=== PATIENT | female | born 1960 | race Caucasian/White ===

== ENCOUNTER 2017-03-22 16:33 | Emergency (ER) | payer OTHER ==
[2017-03-22] MEDS ORDERED: 0.9 % SODIUM CHLORIDE 1,000 ML IV ONE (17:11)
[2017-03-22] MEDS ORDERED: FOLIC ACID 5 MG/1 ML ONE (17:11)
[2017-03-22] MEDS ORDERED: THIAMINE HCL 100 MG/ML 2ML VIAL ONE (17:11)
[2017-03-22] MEDS ORDERED: MVI, ADULT NO.1 WITH VIT K 10 ML VIAL IV ONE (17:11)
[2017-03-22 17:25] LABS: BASOPHILS % 0.8 (0.0-1.5); EOSINOPHILS % 2.6 % (0.0-6.8); MEAN CORPUSCULAR VOLUME 95.7 fl (80.0-100.0); MONOCYTES % 7.7 % (0.0-11.0); NEUTROPHILS # 2.5 # k/uL (1.4-7.7)
[2017-03-22 17:36] LABS: eGFR (African) > 60; eGFR (Non-African) > 60
[2017-03-22] MEDS: THIAMINE HCL 100 MG, MVI, ADULT NO.1 WITH VIT K 10 ML, FOLIC ACID 5 MG in 0.9 % SODIUM ... IV ONE ×4 (17:43)
[2017-03-22 17:49] LABS: APPEARANCE,URINE Clear (CLEAR); COLOR,URINE Yellow (YELLOW); OCCULT BLOOD,URINE Negative (NEGATIVE)
[2017-03-22 17:55] LABS: AMORPHOUS SEDIMENT,UR FEW (NEGATIVE)
[2017-03-22] MEDS: POTASSIUM CHLORIDE 20 MEQ TABLET.ER PO ONE (18:10)
[2017-03-22] MEDS: KETOROLAC TROMETHAMINE 30 MG/1ML VIAL IVP ONE (18:10)
[2017-03-22] MEDS: ONDANSETRON HCL/PF 4 MG/ 2ML VIAL IVP ONE (18:10)
[2017-03-22] MEDS: SULFAMETHOXAZOLE/TRIMETHOPRIM 1 EACH TABLET PO ONE (18:10)
[2017-03-22] MEDS ORDERED: ONDANSETRON HCL/PF 4 MG/ 2ML VIAL ONE (18:21)
[2017-03-22 20:31] VITALS: BP 95/62
--- NOTE | 2017-03-22 20:42 | ED Physician Documentation ---
General Adult - HISTORIAN Historian: patient - HPI Stated Complaint: ETOH intoxication Chief Complaint: General Adult Additional Information: pt. is chronic alcoholic, entering [facility] and had ambulation instability, sent over for eval. Onset: hours (1 hour) Timing: still present Severity: moderate Modifying Factors: chronic alcoholic Further Comments: no - ROS CONST: other (gait disturbance) EYES/ENT: none CVS/RESP: none GI/: none MS/SKIN/LYMPH: none NEURO/PSYCH: difficulty walking - PAST HX Past History: other (chronic alcoholism) Other History: other (hypertension, gerd, anxiety, depression) Surgeries/Procedures: other (hip) Immunizations: referred to PCP Allergies/Adverse Reactions: Allergies Allergy/AdvReac Type Severity Reaction Status Date / Time Latex, Natural Rubber Allergy Verified 03/22/17 17:20 Home Medications: Ambulatory Orders Medication Instructions Recorded Cyclobenzaprine HCl [Flexeril] 5 mg PO TID PRN 03/22/17 Omeprazole [Prilosec] 40 mg PO DAILY 03/22/17 Trazodone HCl 50 mg PO BID 03/22/17 amLODIPine BESYLATE [Norvasc] 5 mg PO 0900 03/22/17 fentaNYL 25 MCG [Duragesic] 25 mcg TOP Q72 03/22/17 risperiDONE [Risperdal] 0.5 mg PO DAILY 03/22/17 - SOCIAL HX Smoking History: non-smoker Alcohol Use: heavy Drug Use: none - FAMILY HX Family History: No - VITAL SIGNS Vital Signs: Vital Signs Temp Pulse Resp BP Pulse Ox 97.9 F 89 14 139/78 91 L 03/22/17 16:45 03/22/17 16:45 03/22/17 16:45 03/22/17 16:45 03/22/17 16:45 - REVIEWED ASSESSMENTS Nursing Assessment Reviewed: Yes Vitals Reviewed: Yes Progress - Results/Orders Results/Orders: cbc, cmp, ua, amylase, ETOH, ct head and ct abdomen/pelvis ordered - Progress Progress: Pt. given a banana bag iv, 30 mg toradol, 1 bactrim ds p.o., 4 mf zofran ivp and 60 mg kcl p.o. in er Critical Care Note - Critical Care Note Total Time (mins): 0 ED Results Lab/Radiology - Lab Results Lab Results: Lab Results 03/22/17 03/22/17 03/22/17 18:16 17:45 17:19 WBC RBC Hgb Hct MCV MCH MCHC RDW Plt Count Neut % (Auto) Lymph % (Auto) [place] % (Auto) Eos % (Auto) Baso % (Auto) Neut # (Auto) Lymph # (Auto) [place] # (Auto) Eos # (Auto) Baso # (Auto) Reactive Lymphs % Reactive Lymphs # Sodium 142 mmol/L mmol/L (136-145) Potassium 2.7 mmol/L L mmol/L (3.5-5.0) Chloride 100 mmol/L mmol/L (98-110) Carbon Dioxide 26 mmol/L mmol/L (20-32) BUN 6 mg/dL L mg/dL (10-26) Creatinine 0.3 mg/dL L mg/dL (0.4-1.5) Estimated Creat Clear 183 Est GFR ( Amer) > 60 (60 - ) Est GFR (Non-Af Amer) > 60 (60 - ) Glucose 106 mg/dL H mg/dL (70-99) Calcium 9.3 mg/dL mg/dL (8.5-10.5) Total Bilirubin 1.3 mg/dL H mg/dL (0.2-1.2) AST 174 U/L H U/L (0-41) ALT 27 U/L U/L (0-45) Alkaline Phosphatase 206 U/L H U/L (46-116) Total Protein 7.1 g/dL g/dL (6.0-8.5) Albumin 4.2 g/dL g/dL (3.0-5.5) Amylase 14 U/L L U/L (20-104) Urine Color Yellow (YELLOW) Urine Appearance Clear (CLEAR) Urine pH 7.0 (5.0 - 8.0) Ur Specific [place] 1.010 (1.010-1.030) Urine Protein Negative mg/dL mg/dL (NEGATIVE) Urine Ketones Negative mg/dL mg/dL (NEGATIVE) Urine Occult Blood Negative (NEGATIVE) Urine Nitrite Negative (NEGATIVE) Urine Bilirubin Negative (NEGATIVE) Urine Urobilinogen 2.0 Eu H Eu (0.2-1.0) Ur Leukocyte Esterase Trace (NEGATIVE) Urine RBC 0-2 (0-2 HPF) Urine WBC 5-10 H (0-5 HPF) Ur Squamous Epith Cells Few (NEG-FEW) Amorphous Sediment Few H (NEGATIVE) Urine Bacteria Many H (NEGATIVE) Urine Glucose Negative mg/dL mg/dL (NEGATIVE) Urine HCG, Qual Negative (NEGATIVE) Ethyl Alcohol 234.0 MG/DL H MG/DL (<10.0) 03/22/17 17:19 WBC 4.80 K/ul K/ul (4.00-12.00) RBC 4.11 M/ul M/ul (3.90-5.20) Hgb 12.3 g/dL g/dL (12.0-16.0) Hct 39.3 % % (34.5-46.5) MCV 95.7 fl fl (80.0-100.0) MCH 30.0 pg pg (28.0-34.0) MCHC 31.4 g/dL g/dL (30.0-36.0) RDW 16.0 % H % (11.3-14.3) Plt Count 94 K/mm3 L K/mm3 (130-400) Neut % (Auto) 51.7 % % (39.0-79.0) Lymph % (Auto) 35.1 % % (16.0-50.0) [place] % (Auto) 7.7 % % (0.0-11.0) Eos % (Auto) 2.6 % % (0.0-6.8) Baso % (Auto) 0.8 (0.0-1.5) Neut # (Auto) 2.5 # k/uL # k/uL (1.4-7.7) Lymph # (Auto) 1.7 # k/uL # k/uL (0.6-4.0) [place] # (Auto) 0.4 # k/uL # k/uL (0.0-0.9) Eos # (Auto) 0.1 # k/uL # k/uL (0.0-0.6) Baso # (Auto) 0.0 # k/uL # k/uL (0.0-0.5) Reactive Lymphs % 2.1 % % (0.0-5.0) Reactive Lymphs # 0.1 # k/uL # k/uL (0.0-0.8) Sodium Potassium Chloride Carbon Dioxide BUN Creatinine Estimated Creat Clear Est GFR ( Amer) Est GFR (Non-Af Amer) Glucose Calcium Total Bilirubin AST ALT Alkaline Phosphatase Total Protein Albumin Amylase Urine Color Urine Appearance Urine pH Ur Specific [place] Urine Protein Urine Ketones Urine Occult Blood Urine Nitrite Urine Bilirubin Urine Urobilinogen Ur Leukocyte Esterase Urine RBC Urine WBC Ur Squamous Epith Cells Amorphous Sediment Urine Bacteria Urine Glucose Urine HCG, Qual Ethyl Alcohol - Radiology Radiology Impressions: ct abdomen/pelvis neg except for constipation, ct head neg - Orders Orders: ED Orders Category Date Time Status Regular Diet 03/22/[address] ABD & PELVIS W/O CON Stat Exams 03/22/[address] BRAIN W/O CONTRAST Stat Exams 03/22/17 Taken AMYLASE Routine Lab 03/22/17 17:19 Completed CBC/PLATELET/DIFF Routine Lab 03/22/17 17:19 Completed CMP Routine Lab 03/22/17 17:19 Completed ETHANOL MEDICAL USE ONLY Routine Lab 03/22/17 17:19 Completed HCG [URINE HCG] Routine Lab 03/22/17 18:16 Completed URINALYSIS Routine Lab 03/22/17 17:45 Completed URINE CULTURE Routine Lab 03/22/17 17:45 Received 0.9 % Sodium Chloride [Normal Saline] 1,000 ml Med 03/22/17 17:11 Discontinued IV .STK-MED Folic Acid [Folvite] Med 03/22/17 17:11 Discontinued 5 mg .ROUTE .STK-MED ONE Ketorolac Tromethamine [Toradol] Med 03/22/17 18:03 Discontinued 30 mg IVP NOW ONE Mvi, Adult No.1 with Vit K [M.v.i. Adult] Med 03/22/17 17:11 Discontinued 10 ml IV .STK-MED ONE Ondansetron HCl/Pf [Zofran 4 mg/2 ml] Med 03/22/17 18:21 Discontinued 4 mg .ROUTE .STK-MED ONE Potassium Chloride [Klor-Con M20] Med 03/22/17 17:58 Discontinued 60 meq PO NOW ONE Sulfamethoxazole/Trimethoprim [Bactrim Ds] Med 03/22/17 17:59 Discontinued 1 each PO NOW ONE Thiamine HCl Med 03/22/17 17:11 Discontinued 200 mg .ROUTE .STK-MED ONE Thiamine HCl 100 mg Med 03/22/17 17:15 Discontinued Mvi, Adult No.1 with Vit K [M.v.i. Adult] 10 ml Folic Acid [Folvite] 5 mg 0.9 % Sodium Chloride [Normal Saline] 1,000 ml IV NOW General Adult Physical Exam - PHYSICAL EXAM GENERAL APPEARANCE: mild distress EENT: ENT inspection normal, pharynx normal, HUYEN, TM's nml, nystagmus NECK: normal inspection, thyroid normal, supple RESPIRATORY: no resp distress, chest non-tender, breath sounds normal CVS: reg rate & rhythm, heart sounds normal, equal pulses, no murmur, no gallop , PMI nml ABDOMEN: soft, tenderness (left lower quadrant and suprapubic area) BACK: normal inspection, no CVA tenderness SKIN: warm/dry, normal color EXTREMITIES: non-tender, normal range of motion, no evidence of injury, other ( staggered ambulation on presentation, much more stable after treatment) NEURO: oriented X3, CN's nml as tested, motor nml, sensation nml, mood/affect nml, cognition normal Discharge Clincal Impression: Hypokalemia Alcohol intoxication Qualifiers: Complication of substance-induced condition: uncomplicated Qualified Code(s): F10.920 - Alcohol use, unspecified with intoxication, uncomplicated Urinary tract infection Qualifiers: Urinary tract infection type: acute cystitis Hematuria presence: without hematuria Qualified Code(s): N30.00 - Acute cystitis without hematuria Referrals: Primary Doctor,No [Primary Care Provider] - 2 Days Home Medications: Ambulatory Orders Cyclobenzaprine HCl [Flexeril] 5 mg PO TID PRN 03/22/17 Omeprazole [Prilosec] 40 mg PO DAILY 03/22/17 Trazodone HCl 50 mg PO BID 03/22/17 amLODIPine BESYLATE [Norvasc] 5 mg PO 0900 03/22/17 fentaNYL 25 MCG [Duragesic] 25 mcg TOP Q72 03/22/17 risperiDONE [Risperdal] 0.5 mg PO DAILY 03/22/17 Comments: Pt. discharged to [facility] in stable condition with prescriptions for K Jane Con 20 meq 1 pill daily for 5 days, Bactrim DS 1 pill twice daily for 7 days. Condition: Stable Disposition: 01 HOME, SELF-CARE Decision to Admit: NO Decision Time: 19:55
--- NOTE | 2017-03-23 05:36 | Diagnostic Imaging Report ---
AUSTYN PEARL~ [facility] [address] [facility].[address] [address] ~ ~ ~ ~ Report Submission Date: Mar 22, 2017 7:02:00 PM CDT Patient ~ Study Name: LARISA SOTO ~ Date: Mar 22, 2017 6:33:27 PM CDT ~ Modality Type: CT\SR Gender: F ~ Description: CT BRAIN W/O CONTRAST : 60 ~ Institution: [facility] Physician: AUSTYN PEARL ~ ~ ~ ~ Examination: CT head without contrast History: Fall Comparison exam: None available Technique: Noncontrast head CT protocol. Findings: Ventricles and sulci are appropriate for patient age. Cerebrocerebellar parenchyma demonstrates normal attenuation. No evidence for parenchymal hemorrhage. No evidence for mass or mass effect. No midline shift. No extra axial fluid collections. Partial visualization of the paranasal sinuses , mastoid air cells, orbits, skull and scalp without gross irregularity. Impression: No acute parenchymal process. No hemorrhage. ~ Electronically signed on Mar 22, 2017 7:02:00 PM CDT by: Bud GAFFNEY
--- NOTE | 2017-03-23 05:37 | Diagnostic Imaging Report ---
AUSTYN PEARL~ [facility] [address] [facility] [address] [place], [place]. [address] ~ ~ ~ ~ Report Submission Date: Mar 22, 2017 7:13:25 PM CDT Patient ~ Study Name: LARISA SOTO ~ Date: Mar 22, 2017 6:37:11 PM CDT ~ Modality Type: CT\SR Gender: F ~ Description: CT ABD & PELVIS W/O CO : 60 ~ Institution: [facility] Physician: AUSTYN PEARL ~ ~ ~ ~ Examination: CT Abdomen/pelvis History: Trauma Comparison exams: None available Technique: CT Abdomen/pelvis without contrast protocol.~ Findings: Liver, spleen, adrenal glands, kidneys, pancreas and gallbladder are without gross irregularity.~ Abdominal aorta with mild peripheral atherosclerotic disease. No aneurysmal dilation. ~Bowel without abnormal dilation. Significant stool throughout the large bowel. No evidence for acute mesenteric inflammation or free air. Midline umbilical midline hernia. Omental involvement, no bowel involvement. Osseous structures demonstrate degenerative changes. Left hip prosthesis device. ~Lung bases with emphysematous less both formation. No infiltrate. Impression: No overt visceral organ injury though sensitivity is reduced on a noncontrast study. No abnormal bowel dilation. Midline abdominal hernia. Omental involvement. No bowel involvement. ~ Electronically signed on Mar 22, 2017 7:13:25 PM CDT by: Bud GAFFNEY
== END 2017-03-22 20:24 | disposition home or self-care (01) ==
LOC: ED 16:33
DX: E87.6 Hypokalemia (principal); F10.920 Alcohol use, unspecified with intoxication, uncomplicated; N30.00 Acute cystitis without hematuria
CPT/HCPCS: 70450; 74176; 80053; 80320; 81002; 81025; 82150; 85025; 87086; 96361; 96365; 96375; 99283; J1885; J2405; J3411; J3490; A9270; G0480; J7030; S1016